=== PATIENT | male | born 1970 | race Caucasian/White ===

== ENCOUNTER 2021-04-11 09:06 | Emergency (ER) | payer OTHER, SELFPAY ==
[2021-04-11 09:20] VITALS: BP 123/89; PULSE 106; RESP 20; O2SAT 98; BMI 24.4
--- NOTE | 2021-04-11 09:25 | DI.RAD.S_ITS ---
PROCEDURE: XR CHEST 1V INDICATIONS: chest pain TECHNIQUE: One view of the chest was acquired. COMPARISON: None. FINDINGS: Surgical changes and devices: None. Lungs and pleura: There is mild diffuse bilateral interstitial and reticulonodular pulmonary density.. No pleural effusions or pneumothorax. Mediastinum: Mediastinal contours appear normal. Heart size is enlarged. Bones and chest wall: No suspicious bony lesions. Overlying soft tissues appear unremarkable. IMPRESSION: Mild pulmonary edema versus atypical pneumonia. Dictated by: Joel Dodson M.D. on 04/11/2021 at 9:46 Approved by: Joel Dodson M.D. on 04/11/2021 at 9:52
[2021-04-11 09:36] VITALS: PULSE 97; RESP 23; O2SAT 97
[2021-04-11 09:38] LABS: Add Manual Diff / Slide Review NO; Basophils Absolute Auto 100 /uL (0-100); Basophils Percent Auto 0.7 % (0-2); Eosinophils Absolute Auto 200 /uL (0-450); Eosinophils Percent Auto 3.1 % (2-4); Hematocrit 39.9 % (41-53); Hemoglobin 13.3 g/dL (13.5-17.5); Lymphocytes Absolute Auto 2100 /uL (1100-4500); Lymphocytes Percent Auto 27.3 % (25-40); Mean Corpuscular HGB Conc 33.3 % (30-36); Mean Corpuscular Volume 98.9 fL (80-100); Monocytes Absolute Auto 600 /uL (0-900); Monocytes Percent Auto 7.1 % (3-14); Neutrophils Absolute Auto 4900 /uL (1500-7000); Neutrophils Percent Auto 61.8 % (50-75); Platelet Count 188 X10^3/uL (150-400); Red Blood Cell Count 4.04 X10^6/uL (4.5-5.9); White Blood Cell Count 7.8 X10^3/uL (4.5-11.0)
--- NOTE | 2021-04-11 09:38 | PC.NURSE ---
Pt reports 2 weeks of increasing orthopnea. no new meds. has been worse since receiving his COVID Moderna 2nd vacc 03/24. states coughing fits and worse at night while lying down. feels better in the prone position. smoker. lungs clear to ausc. skin PWD. HR on arrival 106 and has decreased to 94.
[2021-04-11 09:47] LABS: INR 1.2 (0.9-1.3); Prothrombin Time 13.6 SECONDS (10.1-12.7)
[2021-04-11 09:49] LABS: PTT Partial Thromboplastin Tim 33 SECONDS (26.4-36.2)
[2021-04-11 09:53] LABS: COVID19 -Nasal RAPID Negative (Negative)
[2021-04-11 09:55] LABS: Alanine Aminotransferase 77 IU/L (<50); Albumin 3.9 g/dL (3.5-5.0); Albumin Globulin Ratio 1.4 (1.0-2.8); Alkaline Phosphatase 84 U/L (38-126); Aspartate Aminotransferase 51 IU/L (17-59); BUN Creatinine Ratio 15.6 (6-22); Blood Urea Nitrogen 17 mg/dL (9-20); Calcium 9.2 mg/dL (8.4-10.2); Carbon Dioxide 19 mmol/L (22-32); Chloride 112 mmol/L (98-107); Creatine Kinase 63 U/L (55-170); Estimated Glomerular Filt Rate > 60.0 mL/min (>60); Globulin 2.8 g/dL (1.7-4.1); Glucose 103 mg/dL (70-100); HEMOLYSIS < 15 (0-50); Lipase 62 U/L (23-300); Potassium 4.4 mmol/L (3.4-5.1); Sodium 141 mmol/L (137-145); Total Protein 6.7 g/dL (6.3-8.2)
[2021-04-11 10:00] VITALS: PULSE 88; RESP 22; O2SAT 96
[2021-04-11 10:04] LABS: NT-proBNP (BNP-Adult 18+) 3670 pg/mL (<125)
[2021-04-11 10:06] LABS: Troponin I 0.014 ng/mL (0.01-0.034)
[2021-04-11 10:30] VITALS: PULSE 88; RESP 25; O2SAT 95
[2021-04-11 10:40] LABS: Procalcitonin 0.03 ng/mL (<0.5)
--- NOTE | 2021-04-11 10:45 | ED.SOB ---
HPI - SOB/Dyspnea General Chief Complaint: Shortness of Breath/Dyspnea Stated Complaint: sob/cough intermittent x19 days Time Seen by Provider: 04/11/21 10:45 Source: patient Mode of arrival: Ambulatory Limitations: no limitations History of Present Illness HPI Narrative: This is a 50-year-old male who comes in with complaint of increasing shortness of breath, cough that is been gradually worsening since March 24. Patient states he had his motor and a vaccine on March 24 and noted he had increasing dyspnea. He states that he has noted exertional dyspnea as well which has been slowly worsening and now even walking across the room has become difficult. Has a chronic what he describes as a smoker's cough which is worse at night. He states that recently the phlegm has been difference been clear and thick. He has noted no fevers or chills. He has noted he has had orthopnea for the last 2 nights and has to sit up or forward he has also noted that he is actually more comfortable on his hands and knees prone position in terms of his breathing. Patient denies any swelling in his extremities. He denies any nausea, no vomiting. No chest pain or pressure. No issues with bowel movements or urination. He states that it feels like he is breathing more from his upper lungs in the lower lungs he is not moving his air as well. He has not appreciated any significant worsening of his wheeze and does sometimes have wheezing. Patient has a history of asthma as a child. He smokes a pack per day for the past 3 decades. Patient denies any other past medical history. He does not follow regularly with a primary care and left his last provider a couple years ago. He denies any surgical history. No allergies to medications. He has not ever been on inhalers regularly. He does drink 2-4 alcoholic drinks nightly and denies any illicit. Related Data Previous Rx's Medication Instructions Recorded furosemide [Lasix] 40 mg PO DAILY #7 tab 04/11/21 Allergies Allergy/AdvReac Type Severity Reaction Status Date / Time No Known Drug Allergies Allergy Verified 04/11/21 09:54 Review of Systems Review of Systems ROS Unobtainable: All systems reviewed & are unremarkable except as noted in HPI and below Patient History Medical History Tobacco use Social History Smoking Status: Current every day smoker (1-1.5 pdd x 30 years) Smoking Status: Current every day smoker (1-1.5 pdd x 30 years) tobacco type: cigarettes alcohol intake frequency: 3 or more drinks per day (2-4 drinks daily) Substance Use Type: does not use Exam Narrative Exam Narrative: GENERAL: Alert and oriented x three, well-nourished male in mild distress. HEENT: Head normocephalic, atraumatic, EOMI, pupils reactive, face symmetric, moist mucous membranes NECK: Supple, full range of motion CARDIOVASCULAR: Regular rate and rhythm without murmurs, rubs or gallops. No JVD. No edema bilateral lower extremities. RESPIRATORY: Breath sounds equal bilaterally, no wheezes or rhonchi. Bilateral crackles slightly greater on the left in comparison to the right. No tachypnea. ABDOMEN: Soft, nontender. Normoactive bowel sounds all 4 quadrants. No guarding or rebound, rigidity, no mass : No CVA tenderness EXTREMITIES: Normal range of motion. Neurovascularly intact NEUROLOGICAL: Cranial nerves II through XII grossly intact. Moving all extremities SKIN: Warm, dry, no petechiae, no rashes or lesions. Initial Vital Signs Initial Vital Signs: Vital Signs Pulse Rate 106 H 04/11/21 09:20 Respiratory Rate 20 04/11/21 09:20 Blood Pressure 123/89 04/11/21 09:20 Pulse Oximetry 98 04/11/21 09:20 Course Orders Ordered: Discontinued Medications Furosemide (Furosemide 40 Mg/4 Ml Vial) 40 mg IV NOW ONE Stop: 04/11/21 11:05 Last Admin: 04/11/21 11:15 Dose: 40 mg Documented by: RADHA Vital Signs Vital signs: Vital Signs - 8 hr 04/11/21 11:00 04/11/21 11:08 Pulse Rate 93 H 99 H Respiratory Rate 26 H 30 H Blood Pressure 113/82 Pulse Oximetry 97 99 MDM - SOB/Dyspnea Lab Data Attestation: I reviewed the patient's lab results. Result diagrams: 04/11/21 09:30 04/11/21 09:30 Labs: Lab Results 04/11/21 04/11/21 04/11/21 Range/Units 09:30 09:30 09:30 WBC 7.8 (4.5-11.0) X10^3/uL RBC 4.04 L (4.5-5.9) X10^6/uL Hgb 13.3 L (13.5-17.5) g/dL Hct 39.9 L (41-53) % MCV 98.9 (80-100) fL MCH 33.0 (26-34) PG MCHC 33.3 (30-36) % RDW 14.0 (11.6-14.8) % Plt Count 188 (150-400) X10^3/uL Neut % (Auto) 61.8 (50-75) % Lymph % (Auto) 27.3 (25-40) % Ralls % (Auto) 7.1 (3-14) % Eos % (Auto) 3.1 (2-4) % Baso % (Auto) 0.7 (0-2) % Neut # (Auto) 4900 (2112-8745) /uL Lymph # (Auto) 2100 (5446-5658) /uL Ralls # (Auto) 600 (0-900) /uL Eos # (Auto) 200 (0-450) /uL Baso # (Auto) 100 (0-100) /uL PT 13.6 H (10.1-12.7) SECONDS INR 1.2 (0.9-1.3) APTT 33 (26.4-36.2) SECONDS Sodium 141 (137-145) mmol/L Potassium 4.4 (3.4-5.1) mmol/L Chloride 112 H (98-107) mmol/L Carbon Dioxide 19 L (22-32) mmol/L BUN 17 (9-20) mg/dL Creatinine 1.09 (0.66-1.25) mg/dL Estimated GFR > 60.0 (>60) mL/min BUN/Creatinine Ratio 15.6 (6-22) Glucose 103 H (70-100) mg/dL Calcium 9.2 (8.4-10.2) mg/dL Total Bilirubin 1.0 (0.2-1.3) mg/dL AST 51 (17-59) IU/L ALT 77 H (<50) IU/L Alkaline Phosphatase 84 (38-126) U/L Total Creatine Kinase 63 (55-170) U/L CK-MB (CK-2) TNP CK-MB (CK-2) Rel Index TNP Troponin I 0.014 (0.01-0.034) ng/mL NT-Pro-B Natriuret Pep (<125) pg/mL Total Protein 6.7 (6.3-8.2) g/dL Albumin 3.9 (3.5-5.0) g/dL Globulin 2.8 (1.7-4.1) g/dL Albumin/Globulin Ratio 1.4 (1.0-2.8) Lipase 62 (23-300) U/L Procalcitonin (<0.5) ng/mL SARS-CoV-2 (PCR) (Negative) 04/11/21 04/11/21 04/11/21 Range/Units 09:30 09:30 09:35 WBC (4.5-11.0) X10^3/uL RBC (4.5-5.9) X10^6/uL Hgb (13.5-17.5) g/dL Hct (41-53) % MCV (80-100) fL MCH (26-34) PG MCHC (30-36) % RDW (11.6-14.8) % Plt Count (150-400) X10^3/uL Neut % (Auto) (50-75) % Lymph % (Auto) (25-40) % Ralls % (Auto) (3-14) % Eos % (Auto) (2-4) % Baso % (Auto) (0-2) % Neut # (Auto) (0582-1611) /uL Lymph # (Auto) (1317-1756) /uL Ralls # (Auto) (0-900) /uL Eos # (Auto) (0-450) /uL Baso # (Auto) (0-100) /uL PT (10.1-12.7) SECONDS INR (0.9-1.3) APTT (26.4-36.2) SECONDS Sodium (137-145) mmol/L Potassium (3.4-5.1) mmol/L Chloride (98-107) mmol/L Carbon Dioxide (22-32) mmol/L BUN (9-20) mg/dL Creatinine (0.66-1.25) mg/dL Estimated GFR (>60) mL/min BUN/Creatinine Ratio (6-22) Glucose (70-100) mg/dL Calcium (8.4-10.2) mg/dL Total Bilirubin (0.2-1.3) mg/dL AST (17-59) IU/L ALT (<50) IU/L Alkaline Phosphatase (38-126) U/L Total Creatine Kinase (55-170) U/L CK-MB (CK-2) CK-MB (CK-2) Rel Index Troponin I (0.01-0.034) ng/mL NT-Pro-B Natriuret Pep 3670 H (<125) pg/mL Total Protein (6.3-8.2) g/dL Albumin (3.5-5.0) g/dL Globulin (1.7-4.1) g/dL Albumin/Globulin Ratio (1.0-2.8) Lipase (23-300) U/L Procalcitonin 0.03 (<0.5) ng/mL SARS-CoV-2 (PCR) Negative (Negative) Imaging Data Chest x-ray: Radiologist's Impression: [address] [id number] ReportSigned Patient: Gibson Richardson [facility]#: [id number]: 1970Acct:[id number]/Sex: 50 / MDate of Service: 04/11/21Loc: EDAccession Number: [id number] Procedure: XR chest 1V Ordering Provider: Fabby Grace D.O. PROCEDURE: XR CHEST 1V INDICATIONS: chest pain TECHNIQUE: One view of the chest was acquired. COMPARISON: None. FINDINGS: Surgical changes and devices: None. Lungs and pleura: There is mild diffuse bilateral interstitial and reticulonodular pulmonary density.. No pleural effusions or pneumothorax. Mediastinum: Mediastinal contours appear normal. Heart size is enlarged. Bones and chest wall: No suspicious bony lesions. Overlying soft tissues appear unremarkable. IMPRESSION: Mild pulmonary edema versus atypical pneumonia. Dictated by: Joel Dodson M.D. on 04/11/2021 at 9:46 Approved by: Joel Dodson M.D. on 04/11/2021 at 9:52 ECG Data Attestation: I personally reviewed and interpreted this ECG as follows: Prior ECG tracings: not available for review Interpretation: Sinus rhythm with frequent PVCs. Rate of 97 KS 156 QRS of 102 and QTC of 490. Nonspecific change, left anterior fascicular block. Patient does not have prior EKG available. MDM Narrative Medical decision making narrative: This is a 50-year-old male who comes emergency department with complaint of shortness of breath and cough that his been progressively worsening over the past 19 days. Patient does have a history tobacco abuse with asthma and likely has some COPD component but he is also did noted to have orthopnea and is also more comfortable in a prone positioning. He attributes his symptom onset to receiving his Braden vaccine on March 24. Patient's labs, EKG and chest x-ray supports CHF diagnosis. Patient does not have any known cardiac history but has not followed in several years. His BNP is 3600 today with no prior comparisons. His chest x-ray is consistent with pulmonary edema and his symptomatology is more consistent with this than an atypical pneumonia. He does have an elevated low CO2. Patient has a mild anemia which I feel is less likely to contribute to his symptoms. Patient's ambulatory pulse ox appropriate. His EKG shows frequent PVCs with possible left anterior fascicular block LVH and possible prior infarcts. Patient is not having any active chest pain or pressure or cardiac equivalent today based on his clinical findings and examination history. Discussed with patient he does need follow-up and cardiac evaluation as he would benefit from echo and probably stress testing in the short term. Patient was given a dose of Lasix here in the department. Discussed smoking cessation Discharge Plan Departure Patient Disposition: Home Clinical Impression: CHF (congestive heart failure) Instructions: DI for Heart Failure Activity Restrictions/Additional Instructions: Call to set up follow up with primary care in the next week. It is important for you to have further evaluation of her heart as this may be the cause of r symptoms. Your primary care physician may wish to obtain an echo and or cardiac stress testing at some point in the future as well as evaluating all of your other risk factors. If you have difficulty setting up follow up you can try [phone] the ER social media marketing specialist number and they can assist with to establish follow up. Take Lasix once daily until gone. Please return for worsening shortness of breath, new chest pain or pressure, lightheadedness or passing out, swelling in your extremities, if your symptoms are not improving, persistent nausea vomiting, diaphoresis or black or bloody stools. Prescriptions: New furosemide [Lasix] 40 mg tablet 40 mg PO DAILY Qty: 7 RF: 0 Referrals: Clint Cash MD [Physician] -
[2021-04-11 11:00] VITALS: PULSE 93; RESP 26; O2SAT 97
[2021-04-11 11:08] VITALS: BP 113/82; PULSE 99; RESP 30; O2SAT 99
--- NOTE | 2021-04-11 11:10 | PC.NURSE ---
Pt stayed satting above 98% while ambulating around the department. Did become SOB and HR was 102
[2021-04-11] MEDS: FUROSEMIDE 40 MG/4 ML VIAL IV (11:15)
== END 2021-04-11 11:35 | disposition home or self-care (01) ==
PROVIDERS: Emergency Provider Emergency Medicine
DX: I50.9 Heart failure, unspecified (principal); R07.9 Chest pain, unspecified; R05 Cough; Z20.822 Contact with and (suspected) exposure to COVID-19; D64.9 Anemia, unspecified
CPT/HCPCS: 36415; 71045; 80053; 82550; 83690; 83880; 84145; 84484; 85025; 85610; 85730; 87635; 93005; 93010; 96374; 99284; C9803; J1940

== ENCOUNTER 2021-04-19 16:08 | Emergency (ER) | payer OTHER, SELFPAY ==
[2021-04-19] VITALS (9 sets, daily range): BP systolic 105–124; BP diastolic 76–87; PULSE 89–102; RESP 16–28; TEMP 35.9; O2SAT 86–100; BMI 23.7
--- NOTE | 2021-04-19 16:41 | DI.RAD.S_ITS ---
PROCEDURE: XR CHEST 2V INDICATIONS: shortness of breath TECHNIQUE: 2 views of the chest were acquired. COMPARISON: [facility], CR, XR CHEST 1V, 04/11/2021, 9:36. FINDINGS: Surgical changes and devices: None. Lungs and pleura: Interstitial pulmonary edema. Minimal left pleural effusion. Mediastinum: Mediastinal contours are normal. Mild cardiomegaly. Bones and chest wall: No suspicious bony abnormalities. Soft tissues appear unremarkable. IMPRESSION: Congestive heart failure exacerbation. Dictated by: Pierre Govea M.D. on 04/19/2021 at 17:33 Approved by: Pierre Govea M.D. on 04/19/2021 at 17:34
[2021-04-19 16:58] LABS: Add Manual Diff / Slide Review NO; Basophils Absolute Auto 100 /uL (0-100); Basophils Percent Auto 0.6 % (0-2); Eosinophils Absolute Auto 300 /uL (0-450); Eosinophils Percent Auto 3.7 % (2-4); Hematocrit 40.9 % (41-53); Hemoglobin 13.8 g/dL (13.5-17.5); Lymphocytes Absolute Auto 2300 /uL (1100-4500); Lymphocytes Percent Auto 27.4 % (25-40); Mean Corpuscular HGB Conc 33.7 % (30-36); Mean Corpuscular Hemoglobin 33.5 PG (26-34); Mean Corpuscular Volume 99.4 fL (80-100); Monocytes Absolute Auto 600 /uL (0-900); Monocytes Percent Auto 7.3 % (3-14); Neutrophils Absolute Auto 5200 /uL (1500-7000); Platelet Count 151 X10^3/uL (150-400); Red Blood Cell Count 4.11 X10^6/uL (4.5-5.9); White Blood Cell Count 8.5 X10^3/uL (4.5-11.0)
[2021-04-19 17:25] LABS: Alanine Aminotransferase 80 IU/L (<50); Albumin Globulin Ratio 1.5 (1.0-2.8); Alkaline Phosphatase 79 U/L (38-126); Aspartate Aminotransferase 69 IU/L (17-59); BUN Creatinine Ratio 21.9 (6-22); Bilirubin Total 0.8 mg/dL (0.2-1.3); Blood Urea Nitrogen 21 mg/dL (9-20); Calcium 9.2 mg/dL (8.4-10.2); Carbon Dioxide 26 mmol/L (22-32); Chloride 110 mmol/L (98-107); Estimated Glomerular Filt Rate > 60.0 mL/min (>60); Globulin 2.7 g/dL (1.7-4.1); Glucose 105 mg/dL (70-100); HEMOLYSIS < 15 (0-50); Lactate (Lactic Acid) 0.9 mmol/L (0.7-2.1); Potassium 3.9 mmol/L (3.4-5.1); Sodium 143 mmol/L (137-145); Total Protein 6.7 g/dL (6.3-8.2)
[2021-04-19 17:34] LABS: NT-proBNP (BNP-Adult 18+) 3380 pg/mL (<125)
--- NOTE | 2021-04-19 18:10 | ED.SOB ---
HPI - SOB/Dyspnea General Chief Complaint: Shortness of Breath/Dyspnea Stated Complaint: SOB, Bloated Time Seen by Provider: 04/19/21 18:04 Source: patient Mode of arrival: Ambulatory Limitations: no limitations History of Present Illness HPI Narrative: 50-year-old male daily smoker with history of relatively new CHF presents with a chief complaint of a few days of increasing shortness of breath and fatigue. He states that he is more short of breath with exertion and with lying flat. He denies any fever or chills. He denies any chest pain. He denies any weight gain or swelling of his lower extremities. He denies recent travel, history of blood clot or cancer. Patient had been recently seen and found to be what looked like fluid overload, he was given IV Lasix, prescription for Lasix and encouragement to follow closely. His outpatient appointment is on April 30. He ran out of his Lasix and has been feeling poorly since. MD Complaint: shortness of breath Onset (ago): day(s) Severity: moderate Consistency/Duration: constant Relieving factors: rest Exacerbating factors: lying flat and exertion Associated symptoms: denies other symptoms Treatment prior to arrival: none Related Data Home oxygen amount: none Previous Rx's Medication Instructions Recorded furosemide [Lasix] 40 mg PO DAILY #7 tab 04/11/21 Allergies Allergy/AdvReac Type Severity Reaction Status Date / Time No Known Drug Allergies Allergy Verified 04/19/21 16:17 Review of Systems Constitutional Constitutional: Denies chills, Denies fatigue, Denies fever(s), Denies frequent falls, Denies lethargy and Denies weakness Eyes Eyes: Denies change in vision, Denies eye discharge, Denies irritation and Denies loss of vision ENT Ears, Nose, Mouth, and Throat: Denies change in voice, Denies dizziness, Denies neck pain, Denies sore throat and Denies throat swelling Cardiovascular Cardiovascular: Denies chest pain, Denies irregular heart rhythm, Denies lightheadedness, Denies palpitations, Reports dyspnea, Reports dyspnea on exertion and Reports orthopnea Respiratory Respiratory: Denies cough, Reports dyspnea, Reports dyspnea on exertion and Denies wheezing Gastrointestinal Gastrointestinal: Denies abdominal pain, Denies change in bowel habits, Denies diarrhea, Denies nausea and Denies vomiting Musculoskeletal Musculoskeletal: Denies neck pain and Denies numbness Integumentary/Breasts Skin/Breast: Denies pruritus, Denies erythema, Denies rash and Denies wounds Neurologic Neurologic: Denies behavioral changes, Denies confusion, Denies dizziness, Denies frequent falls, Denies loss of vision, Denies numbness and Denies weakness Psychiatric Psychiatric: Denies anxiety, Denies behavioral changes, Denies confusion, Denies depression, Denies homicidal ideation and Denies suicidal ideation Endocrine Endocrine: Denies fatigue, Denies flushing and Denies palpitations Hematologic/Lymphatic Hematologic/Lymphatic: Denies easy bruising Allergic/Immunologic Allergic/Immunologic: Denies urticaria, Denies throat swelling and Denies wheezing Patient History Medical History Tobacco use Social History Smoking Status: Current every day smoker Smoking Status: Current every day smoker tobacco type: cigarettes alcohol intake frequency: 0-2 drinks per day Substance Use Type: does not use Exam Narrative Exam Narrative: GENERAL: [50] year old patient appears stated age. Well-nourished, well-developed patient, in mild distress. HEAD: Atraumatic. Normocephalic. EYES: Pupils equal round and reactive. Extraocular motions intact. No scleral icterus. No injection or drainage. ENT: Nose without bleeding, purulent drainage. Throat without erythema, tonsillar hypertrophy or exudate. Airway patent. NECK: Trachea midline. Non tender CARDIOVASCULAR: Regular rate and rhythm without murmurs, gallops, or rubs. RESPIRATORY: Clear to auscultation. Breath sounds equal bilaterally. No wheezes, rales, or rhonchi. GASTROINTESTINAL: Abdomen soft, non-tender, nondistended. EXTREMITIES: No edema or joint tenderness. BACK: Nontender without deformity or crepitance. No flank tenderness. NEURO: AOx3. SKIN: No rash or erythema of visible areas Initial Vital Signs Initial Vital Signs: Vital Signs Temperature 96.7 F L 04/19/21 16:15 Pulse Rate 96 H 04/19/21 16:15 Respiratory Rate 16 04/19/21 16:15 Blood Pressure 105/76 04/19/21 16:15 Pulse Oximetry 99 04/19/21 16:15 Course Orders Ordered: ED Orders 04/19/21 19:17 CT angio chest PE protocol Stat 04/19/21 21:30 COVID19 - ADMIT (PROCEDURES RN swab/PCR) Stat Troponin I Stat Discontinued Medications Furosemide (Furosemide 40 Mg/4 Ml Vial) 40 mg IV NOW ONE Stop: 04/19/21 18:07 Last Admin: 04/19/21 18:47 Dose: 40 mg Documented by: MARIMAR Reevaluation(s) Reevaluation #1: Called to see patient with abnormal tracing noting 5 beats of nonsustained ventricular tachycardia, patient was vagal asymptomatic and says he felt some kind of beating or twinge in his left upper chest but otherwise is well and has returned to normal. Repeat labs and EKG ordered, Cardiology consulted Consultations Consultation #1: Call to Cardiology, discussion of case, cardiology states this is likely a dilated cardiomyopathy from chronic alcohol abuse. Recommends diuresis, admission to [facility] for echocardiogram and stabilization on medications. Consultation #2: Call back to [facility] after V-tach, he recommends transfer to [facility]. Vital Signs Vital signs: Vital Signs - 8 hr 04/19/21 20:00 04/19/21 20:31 04/19/21 21:00 Pulse Rate 93 H 102 H 98 H Respiratory Rate 21 28 H Blood Pressure Pulse Oximetry 100 86 L 97 04/19/21 21:30 04/19/21 22:00 04/19/21 22:33 Pulse Rate 99 H 97 H 100 H Respiratory Rate 26 H 24 Blood Pressure Pulse Oximetry 97 95 92 04/19/21 22:34 Pulse Rate 94 H Respiratory Rate 23 Blood Pressure 124/87 Pulse Oximetry 96 MDM - SOB/Dyspnea Lab Data Result diagrams: 04/19/21 16:50 04/19/21 16:50 Labs: Lab Results 04/19/21 04/19/21 04/19/21 Range/Units 16:50 16:50 16:50 WBC 8.5 (4.5-11.0) X10^3/uL RBC 4.11 L (4.5-5.9) X10^6/uL Hgb 13.8 (13.5-17.5) g/dL Hct 40.9 L (41-53) % MCV 99.4 (80-100) fL MCH 33.5 (26-34) PG MCHC 33.7 (30-36) % RDW 14.0 (11.6-14.8) % Plt Count 151 (150-400) X10^3/uL Neut % (Auto) 61.0 (50-75) % Lymph % (Auto) 27.4 (25-40) % Sargent % (Auto) 7.3 (3-14) % Eos % (Auto) 3.7 (2-4) % Baso % (Auto) 0.6 (0-2) % Neut # (Auto) 5200 (0770-4305) /uL Lymph # (Auto) 2300 (3155-4014) /uL Sargent # (Auto) 600 (0-900) /uL Eos # (Auto) 300 (0-450) /uL Baso # (Auto) 100 (0-100) /uL D-Dimer (<230) ng/mL Sodium 143 (137-145) mmol/L Potassium 3.9 (3.4-5.1) mmol/L Chloride 110 H (98-107) mmol/L Carbon Dioxide 26 (22-32) mmol/L BUN 21 H (9-20) mg/dL Creatinine 0.96 (0.66-1.25) mg/dL Estimated GFR > 60.0 (>60) mL/min BUN/Creatinine Ratio 21.9 (6-22) Glucose 105 H (70-100) mg/dL Lactate (0.7-2.1) mmol/L Calcium 9.2 (8.4-10.2) mg/dL Magnesium (1.6-2.3) mg/dL Total Bilirubin 0.8 (0.2-1.3) mg/dL AST 69 H (17-59) IU/L ALT 80 H (<50) IU/L Alkaline Phosphatase 79 (38-126) U/L Total Creatine Kinase (55-170) U/L CK-MB (CK-2) CK-MB (CK-2) Rel Index Troponin I (0.01-0.034) ng/mL NT-Pro-B Natriuret Pep 3380 H (<125) pg/mL Total Protein 6.7 (6.3-8.2) g/dL Albumin 4.0 (3.5-5.0) g/dL Globulin 2.7 (1.7-4.1) g/dL Albumin/Globulin Ratio 1.5 (1.0-2.8) SARS-CoV-2 (PCR) (Negative) 04/19/21 04/19/21 04/19/21 Range/Units 16:50 16:50 16:50 WBC (4.5-11.0) X10^3/uL RBC (4.5-5.9) X10^6/uL Hgb (13.5-17.5) g/dL Hct (41-53) % MCV (80-100) fL MCH (26-34) PG MCHC (30-36) % RDW (11.6-14.8) % Plt Count (150-400) X10^3/uL Neut % (Auto) (50-75) % Lymph % (Auto) (25-40) % Sargent % (Auto) (3-14) % Eos % (Auto) (2-4) % Baso % (Auto) (0-2) % Neut # (Auto) (4966-9014) /uL Lymph # (Auto) (9850-0279) /uL Sargent # (Auto) (0-900) /uL Eos # (Auto) (0-450) /uL Baso # (Auto) (0-100) /uL D-Dimer 696 H (<230) ng/mL Sodium (137-145) mmol/L Potassium (3.4-5.1) mmol/L Chloride (98-107) mmol/L Carbon Dioxide (22-32) mmol/L BUN (9-20) mg/dL Creatinine (0.66-1.25) mg/dL Estimated GFR (>60) mL/min BUN/Creatinine Ratio (6-22) Glucose (70-100) mg/dL Lactate 0.9 (0.7-2.1) mmol/L Calcium (8.4-10.2) mg/dL Magnesium (1.6-2.3) mg/dL Total Bilirubin (0.2-1.3) mg/dL AST (17-59) IU/L ALT (<50) IU/L Alkaline Phosphatase (38-126) U/L Total Creatine Kinase 56 (55-170) U/L CK-MB (CK-2) TNP CK-MB (CK-2) Rel Index TNP Troponin I 0.028 (0.01-0.034) ng/mL NT-Pro-B Natriuret Pep (<125) pg/mL Total Protein (6.3-8.2) g/dL Albumin (3.5-5.0) g/dL Globulin (1.7-4.1) g/dL Albumin/Globulin Ratio (1.0-2.8) SARS-CoV-2 (PCR) (Negative) 04/19/21 04/19/21 04/19/21 Range/Units 16:50 21:30 21:30 WBC (4.5-11.0) X10^3/uL RBC (4.5-5.9) X10^6/uL Hgb (13.5-17.5) g/dL Hct (41-53) % MCV (80-100) fL MCH (26-34) PG MCHC (30-36) % RDW (11.6-14.8) % Plt Count (150-400) X10^3/uL Neut % (Auto) (50-75) % Lymph % (Auto) (25-40) % Sargent % (Auto) (3-14) % Eos % (Auto) (2-4) % Baso % (Auto) (0-2) % Neut # (Auto) (2634-5110) /uL Lymph # (Auto) (1879-7076) /uL Sargent # (Auto) (0-900) /uL Eos # (Auto) (0-450) /uL Baso # (Auto) (0-100) /uL D-Dimer (<230) ng/mL Sodium (137-145) mmol/L Potassium (3.4-5.1) mmol/L Chloride (98-107) mmol/L Carbon Dioxide (22-32) mmol/L BUN (9-20) mg/dL Creatinine (0.66-1.25) mg/dL Estimated GFR (>60) mL/min BUN/Creatinine Ratio (6-22) Glucose (70-100) mg/dL Lactate (0.7-2.1) mmol/L Calcium (8.4-10.2) mg/dL Magnesium 2.0 (1.6-2.3) mg/dL Total Bilirubin (0.2-1.3) mg/dL AST (17-59) IU/L ALT (<50) IU/L Alkaline Phosphatase (38-126) U/L Total Creatine Kinase (55-170) U/L CK-MB (CK-2) CK-MB (CK-2) Rel Index Troponin I 0.038 H (0.01-0.034) ng/mL NT-Pro-B Natriuret Pep (<125) pg/mL Total Protein (6.3-8.2) g/dL Albumin (3.5-5.0) g/dL Globulin (1.7-4.1) g/dL Albumin/Globulin Ratio (1.0-2.8) SARS-CoV-2 (PCR) Negative (Negative) Imaging Data Chest x-ray: Radiologist's Impression: [address] [id number] ReportSigned Patient: Gibson Richardson SMR#: [id number]: 1970Acct:[id number]/Sex: 50 / MDate of Service: 04/19/21Loc: EDAccession Number: [id number] Procedure: XR chest 2V Ordering Provider: Andrea Brandon D.O. PROCEDURE: XR CHEST 2V INDICATIONS: shortness of breath TECHNIQUE: 2 views of the chest were acquired. COMPARISON: [facility], , XR CHEST 1V, 04/11/2021, 9:36. FINDINGS: Surgical changes and devices: None. Lungs and pleura: Interstitial pulmonary edema. Minimal left pleural effusion. Mediastinum: Mediastinal contours are normal. Mild cardiomegaly. Bones and chest wall: No suspicious bony abnormalities. Soft tissues appear unremarkable. IMPRESSION: Congestive heart failure exacerbation. Dictated by: Pierre Govea M.D. on 04/19/2021 at 17:33 Approved by: Pierre Govea M.D. on 04/19/2021 at 17:34 CT scan - chest: Radiologist's Impression: Chart Viewer Diagnostics DATE TYPE STATUS REF RANGE/AUTHOR Hx 04/19/21 19:17 Pierre Govea 04/19/21 16:41 Pierre Govea 04/11/21 09:25 Joel Dodson Alan Neris 50, M101/20/1970 DEP ER, [facility] ED 180.34cm 77.111kg BMI: 23.7kg/m? Shortness of Breath/Dyspnea Search Chart No Data to Display ONSET 04/19/21 22:34 Gibson Richardson 50 M [address] [id number] Scan ReportSigned Patient: Gibson Richardson [facility]#: [id number]: 1970Acct:[id number]/Sex: 50 / MDate of Service: 04/19/21Loc: EDAccession Number: [id number] Procedure: CT angio chest PE protocol Ordering Provider: Cali Wood D.O. PROCEDURE: CT ANGIO CHEST PE PROTOCOL INDICATIONS: acute heart failure, no history, critical D Dimer TECHNIQUE: After the administration of intravenous contrast, 2 mm thick sections acquired from the pulmonary apices to the posterior costophrenic angles. 3-dimensional maximum intensity projection (MIP) coronal and sagittal reformats were then acquired through the thorax. For radiation dose reduction, the following was used: automated exposure control, adjustment of mA and/or kV according to patient size. COMPARISON: None. FINDINGS: Image quality: Excellent. Pulmonary arteries: Pulmonary arteries are normal in size, and demonstrate no intraluminal filling defects to suggest central pulmonary embolism. Lungs and pleura: Pulmonary interstitial fibrosis. Very mild alveolar pulmonary edema. Mild to moderate bilateral pleural effusions. Mediastinum: Four-chamber cardiomegaly, moderate. Advanced coronary artery atherosclerotic calcifications. Mild pericardial effusion. There is mediastinal adenopathy. A subcarinal lymph node measures 3.2 x 2.1 cm on image 70/4. A right paratracheal lymph node on image 55/4 measures 2.5 x 1.6 cm. There are other prominent right paratracheal lymph nodes. There is an AP window lymph node that measures 2.2 x 1.6 cm. Thoracic aorta is normal in caliber and enhancement. Esophagus is normal in caliber, without hiatal hernia. Bones and chest wall: No suspicious bony lesions. Ribs and thoracic spine appear intact throughout. Thyroid gland is unremarkable as visualized. No axillary or supraclavicular adenopathy. Abdomen: Visualized upper abdominal solid organs appear normal in the early arterial phase of enhancement. IMPRESSION: 1. No evidence acute pulmonary emboli. 2. Moderate four-chamber cardiomegaly, mild pericardial effusion, severe coronary atherosclerotic calcifications. 3. Mild alveolar pulmonary edema. Diffuse interstitial pulmonary edema. Mild to moderate bilateral pleural effusions. 4. Relatively symmetric mediastinal adenopathy. This is of uncertain etiology. Malignancy is not excluded. However, this may all be reactive. Consider follow-up imaging at a later date. Dictated by: Pierre Govea M.D. on 04/19/2021 at 20:20 Approved by: Pierre Govea M.D. on 04/19/2021 at 20:26 ECG Data Interpretation: Sinus rhythm, rate 90, frequent PVCs. LVH. No ST segmental elevation or depression. No T-wave inversions or hyperacute T-waves Discharge Plan Departure Patient Disposition: [facility] Clinical Impression: Congestive heart failure Prescriptions: No Action furosemide [Lasix] 40 mg tablet 40 mg PO DAILY Qty: 7 RF: 0
[2021-04-19] MEDS: FUROSEMIDE 40 MG/4 ML VIAL IV (18:47)
[2021-04-19 18:52] LABS: Creatine Kinase 56 U/L (55-170); D Dimer 696 ng/mL (<230)
[2021-04-19 19:04] LABS: Troponin I 0.028 ng/mL (0.01-0.034)
--- NOTE | 2021-04-19 19:17 | DI.CT.S_ITS ---
PROCEDURE: CT ANGIO CHEST PE PROTOCOL INDICATIONS: acute heart failure, no history, critical D Dimer TECHNIQUE: After the administration of intravenous contrast, 2 mm thick sections acquired from the pulmonary apices to the posterior costophrenic angles. 3-dimensional maximum intensity projection (MIP) coronal and sagittal reformats were then acquired through the thorax. For radiation dose reduction, the following was used: automated exposure control, adjustment of mA and/or kV according to patient size. COMPARISON: None. FINDINGS: Image quality: Excellent. Pulmonary arteries: Pulmonary arteries are normal in size, and demonstrate no intraluminal filling defects to suggest central pulmonary embolism. Lungs and pleura: Pulmonary interstitial fibrosis. Very mild alveolar pulmonary edema. Mild to moderate bilateral pleural effusions. Mediastinum: Four-chamber cardiomegaly, moderate. Advanced coronary artery atherosclerotic calcifications. Mild pericardial effusion. There is mediastinal adenopathy. A subcarinal lymph node measures 3.2 x 2.1 cm on image 70/4. A right paratracheal lymph node on image 55/4 measures 2.5 x 1.6 cm. There are other prominent right paratracheal lymph nodes. There is an AP window lymph node that measures 2.2 x 1.6 cm. Thoracic aorta is normal in caliber and enhancement. Esophagus is normal in caliber, without hiatal hernia. Bones and chest wall: No suspicious bony lesions. Ribs and thoracic spine appear intact throughout. Thyroid gland is unremarkable as visualized. No axillary or supraclavicular adenopathy. Abdomen: Visualized upper abdominal solid organs appear normal in the early arterial phase of enhancement. IMPRESSION: 1. No evidence acute pulmonary emboli. 2. Moderate four-chamber cardiomegaly, mild pericardial effusion, severe coronary atherosclerotic calcifications. 3. Mild alveolar pulmonary edema. Diffuse interstitial pulmonary edema. Mild to moderate bilateral pleural effusions. 4. Relatively symmetric mediastinal adenopathy. This is of uncertain etiology. Malignancy is not excluded. However, this may all be reactive. Consider follow-up imaging at a later date. Dictated by: Pierre Govea M.D. on 04/19/2021 at 20:20 Approved by: Pierre Govea M.D. on 04/19/2021 at 20:26
[2021-04-19 22:04] LABS: Troponin I 0.038 ng/mL (0.01-0.034)
[2021-04-19 22:35] LABS: COVID19 - ADMIT (NP swab/PCR) Negative (Negative)
== END 2021-04-19 23:42 | disposition short-term general hospital (02) ==
PROVIDERS: Emergency Medicine; Emergency Provider Emergency Medicine; PCP Family Medicine
DX: I50.9 Heart failure, unspecified (principal); R06.02 Shortness of breath; Z20.822 Contact with and (suspected) exposure to COVID-19
CPT/HCPCS: 36415; 71046; 71275; 80053; 82550; 83605; 83735; 83880; 84484; 85025; 85379; 87635; 93005; 96374; 99284; C9803; J1940

== ENCOUNTER → 2025-01-28 07:17 | Outpatient (CLI) | payer OTHER, SELFPAY ==
[2025-01-28 07:41] LABS: Add Manual Diff / Slide Review NO; Basophils Absolute Auto 0 /uL (0-100); Basophils Percent Auto 0.3 % (0-2); Eosinophils Absolute Auto 200 /uL (0-450); Eosinophils Percent Auto 2.3 % (2-4); Hematocrit 43.6 % (41-53); Lymphocytes Absolute Auto 2200 /uL (1100-4500); Lymphocytes Percent Auto 27.3 % (25-40); Mean Corpuscular HGB Conc 34.5 % (30-36); Mean Corpuscular Hemoglobin 33.7 PG (26-34); Mean Corpuscular Volume 97.7 fL (80-100); Monocytes Absolute Auto 800 /uL (0-900); Monocytes Percent Auto 9.4 % (3-14); Neutrophils Absolute Auto 4900 /uL (1500-7000); Neutrophils Percent Auto 60.7 % (50-75); Platelet Count 176 X10^3/uL (150-400); Red Blood Cell Count 4.46 X10^6/uL (4.5-5.9); White Blood Cell Count 8.2 X10^3/uL (4.5-11.0)
[2025-01-28 08:09] LABS: Alanine Aminotransferase 45 IU/L (<50); Albumin 4.9 g/dL (3.5-5.0); Albumin Globulin Ratio 1.6 (1.0-2.8); Alkaline Phosphatase 51 U/L (38-126); Aspartate Aminotransferase 36 IU/L (17-59); BUN Creatinine Ratio 21.8 (6-22); Bilirubin Total 1.1 mg/dL (0.2-1.3); Blood Urea Nitrogen 17 mg/dL (9-20); Calcium 9.2 mg/dL (8.4-10.2); Carbon Dioxide 27 mmol/L (22-32); Chloride 102 mmol/L (98-107); Cholesterol 184 mg/dL (140-199); Estimated Glomerular Filt Rate > 60 mL/min (>60); Glucose 108 mg/dL (70-100); HDL Cholesterol 59 mg/dL (40-60); HEMOLYSIS < 15 (0-50); LDL Cholesterol Calculated 107 mg/dL (<100); Potassium 3.8 mmol/L (3.4-5.1); Sodium 137 mmol/L (137-145); Total Protein 7.9 g/dL (6.3-8.2); Triglycerides 92 mg/dL (35-150)
[2025-01-28 08:38] LABS: Prostate Specific Antigen Scrn 0.464 ng/mL (0.1-4.0)
[2025-01-28 08:39] LABS: TSH w/ Reflex to FT4 1.07 uIU/mL (0.47-4.68)
[2025-01-28 08:57] LABS: Hep C Virus Ab w/Reflex Quant NEGATIVE s/c (NEGATIVE)
[2025-01-29 04:09] LABS: Apolipoprotein B 87 mg/dL (<90)
== END ==
PROVIDERS: PCP Family Medicine; Referring Provider Family Medicine; Visit Provider Family Medicine
DX: Z12.5 Encounter for screening for malignant neoplasm of prostate; F17.210 Nicotine dependence, cigarettes, uncomplicated; I25.10 Atherosclerotic heart disease of native coronary artery without angina pectoris; I42.6 Alcoholic cardiomyopathy; I48.0 Paroxysmal atrial fibrillation
CPT/HCPCS: 36415; 80053; 80061; 82172; 84443; 85025; 86803; G0103

== ENCOUNTER → 2025-03-24 09:33 | Outpatient (CLI) | payer OTHER, SELFPAY ==
--- NOTE | 2025-03-24 09:35 | DI.CT.S_ITS ---
PROCEDURE: CT LUNG LOW DOSE SCREENING INDICATIONS: Lung cancer screening TECHNIQUE: Noncontrast 2.0-2.5 mm thick sections acquired from the pulmonary apices to the posterior costophrenic angles. 7 mm thick axial MIP, and 5 mm coronal and sagittal reformats were then acquired. For radiation dose reduction, the following was used: automated exposure control, adjustment of mA and/or kV according to patient size. COMPARISON: [facility], CT, CT ANGIO CHEST PE PROTOCOL, 04/19/2021, 19:52. FINDINGS: Image quality: Diagnostic. Lower Neck: No enlarged lymph nodes. Thyroid: No thyroid nodules which require sonographic follow up, per consensus guidelines. Axillae: No enlarged lymph nodes. Chest Wall: Unremarkable. Pacemaking device with dual chamber leads now present. Bones: Unremarkable. Lungs and Pleura: No pneumothorax or pleural effusions. No consolidation or suspicious nodules. Heart: Heart size is normal. No pericardial effusion. Thoracic Vessels: The aorta and pulmonary arteries demonstrate normal size. Mediastinum and Estela: No enlarged lymph nodes. Esophagus: No wall thickening. No hiatal hernia. Upper Abdomen: Visualized upper abdomen solid organs and bowel loops appear normal. IMPRESSION: No suspicious pulmonary nodules. LUNG-RADS 1; continued annual screening, if eligible. Clinically Significant Non-pulmonary Findings: Interval placement of left-sided cardiac pacemaking device with dual chamber leads in normal position. Dictated by: Molina Tran M.D. on 03/24/2025 at 12:32 Approved by: Molina Tran M.D. on 03/24/2025 at 12:35
== END ==
PROVIDERS: PCP Family Medicine; Referring Provider Family Medicine; Visit Provider Family Medicine
DX: Z12.2 Encounter for screening for malignant neoplasm of respiratory organs (principal); F17.210 Nicotine dependence, cigarettes, uncomplicated; Z95.0 Presence of cardiac pacemaker
CPT/HCPCS: 71271